=== PATIENT | female | born 1995 | race African-American/Black ===

== ENCOUNTER 2025-01-03 12:21 | Emergency (ER) | payer MEDICAID ==
[~2025-01-03] VITALS: Ht 167.6 cm; Wt 78.5 kg
[2025-01-03 12:23] VITALS: BP 121/76; PULSE 93; RESP 16; TEMP 36.7; O2SAT 100; O2SAT 98
[2025-01-03 13:05] LABS: BASOPHILS % 0.9 % (0.0-2.0); EOSINOPHILS % 2.3 % (0.0-5.0); HEMATOCRIT. 40.0 % (36.0-48.0); HEMOGLOBIN. 13.9 g/dL (12.0-16.0); LYMPHOCYTES % 26.1 % (20.0-50.0); MEAN PLATELET VOLUME 8.4 fl (7.4-10.4); MONOCYTES % 5.5 % (2.0-8.0); NEUTROPHILS % 65.2 % (40.0-76.0); PLATELET 295 x1000/uL (130-400); RED BLOOD CELL COUNT 4.16 mill/uL (4.2-5.4); RED CELL DISTRIBUTION WIDTH 12.7 % (11.6-14.6)
[2025-01-03 13:20] LABS: CREATININE 0.9 mg/dL (0.6-1.0); UREA NITROGEN BLOOD 10 mg/dL (9-23)
[2025-01-03 13:21] LABS: TROPONIN I HIGH SENSITIVITY < 4 ng/L (3.0-34)
[2025-01-03] MEDS ORDERED: ALBU18HF2 IH (15:05)
== END 2025-01-03 15:41 | disposition home or self-care (01) ==
LOC: ER 12:21
DX: R06.02 Shortness of breath (principal); R07.89 Other chest pain; Z90.89 Acquired absence of other organs
CPT/HCPCS: 36415; 71045; 80048; 84484; 85025; 93005; 99285